=== PATIENT | male | born 1950 | race Two or more races ===

== ENCOUNTER 2018-01-03 09:54 | Emergency (ER) | payer MEDICAID ==
[~2018-01-03] VITALS: Ht 160 cm; Wt 83.0 kg
[2018-01-03] MEDS ORDERED: dexamethasone 0.5 mg/5ml unit-dose oral solution PO STA (12:24)
[2018-01-03] MEDS ORDERED: dexamethasone sod phosphate 10mg/ml inj PO STA (12:27)
[2018-01-03] MEDS ORDERED: HYDR-565 PO (12:52)
[2018-01-03 13:05] VITALS: BP 146/87
== END 2018-01-03 13:06 | disposition home or self-care (01) ==
LOC: ER 09:55
DX: M25.512 Pain in left shoulder (principal); E11.9 Type 2 diabetes mellitus without complications; M19.90 Unspecified osteoarthritis, unspecified site; G89.29 Other chronic pain; Z90.49 Acquired absence of other specified parts of digestive tract
CPT/HCPCS: 99284; J1100; J8540

== ENCOUNTER 2018-04-02 07:26 | Emergency (ER) | payer MEDICAID ==
[~2018-04-02] VITALS: Ht 172.7 cm; Wt 82.0 kg
[2018-04-02] MEDS ORDERED: ipratropium/albuterol 3ml nebule NEB ONE (07:55)
[2018-04-02] MEDS ORDERED: acetaminophen 325mg tablet PO ONE (07:55)
[2018-04-02] MEDS ORDERED: methylPREDNISolone sod succ 125mg/2ml vial IV ONE (07:55)
[2018-04-02] MEDS ORDERED: methylPREDNISolone sod succ 125mg/2ml vial ONE (08:16)
[2018-04-02 08:27] LABS: BASOPHILS % (AUTO) 0.2 % (0-1); EOSINOPHILS # (AUTO) 0.3 X10'3 (0-0.9); EOSINOPHILS % (AUTO) 3.7 % (0-6); HEMATOCRIT 39.6 % (42.0-52.0); HEMOGLOBIN 14.1 g/dl (14.0-17.9); INR 1.1 INR; LYMPHOCYTES # (AUTO) 1.2 X10'3 (1.1-4.8); LYMPHOCYTES % (AUTO) 17.5 % (21-51); MEAN CORPUSCULAR HGB CONC 35.6 % (33.0-36.5); MEAN CORPUSCULAR VOLUME 84.2 FL (78-98); MEAN PLATELET VOLUME 9.8 FL (7.4-10.4); MONOCYTES # (AUTO) 0.4 X10'3 (0-0.9); MONOCYTES % (AUTO) 5.7 % (2-12); NEUTROPHILS % (AUTO) 72.9 % (42-75); PARTIAL THROMBOPLASTIN TIME 31 SECONDS (22-32); PLATELET COUNT 174 X10'3 (140-440); PROTHROMBIN TIME 11.4 SECONDS (9.0-12.0); RED BLOOD COUNT 4.71 X10'6 (4.70-6.10); RED CELL DISTRIBUTION WIDTH 12.4 % (11.5-14.5); WHITE BLOOD COUNT 6.9 X10'3 (4.5-11.0)
[2018-04-02 08:30] LABS: ALANINE AMINOTRANSFERASE 27 U/L (12-78); ALBUMIN 3.6 G/DL (3.4-5.0); ALBUMIN/GLOBULIN RATIO 1.1 (1.1-1.5); ALKALINE PHOSPHATASE 88 IU/L (46-116); ANION GAP 13 (8-16); ASPARTATE AMINO TRANSFERASE 22 U/L (10-37); BILIRUBIN,TOTAL 0.7 MG/DL (0.1-1.0); BLOOD UREA NITROGEN 11 MG/DL (7-18); BUN/CREATININE RATIO 10.5 (5.4-32.0); CALCIUM 8.7 MG/DL (8.5-10.1); CHLORIDE 101 MMOL/L (99-107); CREATININE 1.05 MG/DL (0.60-1.10); GLUCOSE 257 MG/DL (70-104); POTASSIUM 3.7 MMOL/L (3.5-5.1); SODIUM 137 MMOL/L (135-145); TOTAL PROTEIN 6.9 G/DL (6.4-8.2); eGFR 70 ML/MIN
[2018-04-02] MEDS ORDERED: levoFLOXACIN 500mg tablet PO ONE (09:30)
[2018-04-02] MEDS ORDERED: LEVO750T21 PO (09:55)
[2018-04-02 10:06] VITALS: BP 125/77
== END 2018-04-02 10:08 | disposition home or self-care (01) ==
LOC: ER 07:27
DX: J18.9 Pneumonia, unspecified organism (principal); M25.562 Pain in left knee; G89.29 Other chronic pain; J45.909 Unspecified asthma, uncomplicated; E11.9 Type 2 diabetes mellitus without complications; M19.90 Unspecified osteoarthritis, unspecified site; Z90.49 Acquired absence of other specified parts of digestive tract
CPT/HCPCS: 36415; 71045; 80053; 83880; 84484; 85025; 85610; 85730; 93005; 94640; 94760; 96374; 96376; 99285; J2930

== ENCOUNTER 2018-04-11 12:41 | Emergency (ER) | payer MEDICAID ==
[~2018-04-11] VITALS: Ht 165.1 cm; Wt 82.8 kg
[2018-04-11] MEDS ORDERED: dexamethasone 4mg tablet PO ONE (13:10)
[2018-04-11] MEDS ORDERED: ipratropium/albuterol 3ml nebule NEB ONE (13:10)
[2018-04-11 14:08] LABS: BASOPHILS % (AUTO) 0.2 % (0-1); EOSINOPHILS # (AUTO) 0.1 X10'3 (0-0.9); EOSINOPHILS % (AUTO) 1.6 % (0-6); HEMATOCRIT 42.2 % (42.0-52.0); HEMOGLOBIN 14.8 g/dl (14.0-17.9); LYMPHOCYTES % (AUTO) 12.1 % (21-51); MEAN CORPUSCULAR HEMOGLOBIN 29.6 PG (27.0-31.0); MEAN CORPUSCULAR VOLUME 84.7 FL (78-98); MEAN PLATELET VOLUME 9.6 FL (7.4-10.4); MONOCYTES # (AUTO) 0.5 X10'3 (0-0.9); MONOCYTES % (AUTO) 6.3 % (2-12); NEUTROPHILS # (AUTO) 6.4 X10'3 (1.8-7.7); NEUTROPHILS % (AUTO) 79.8 % (42-75); PLATELET COUNT 169 X10'3 (140-440); RED BLOOD COUNT 4.98 X10'6 (4.70-6.10); WHITE BLOOD COUNT 8.1 X10'3 (4.5-11.0)
[2018-04-11 15:35] LABS: ALANINE AMINOTRANSFERASE 50 U/L (12-78); ALBUMIN 3.9 G/DL (3.4-5.0); ALBUMIN/GLOBULIN RATIO 1.1 (1.1-1.5); ALKALINE PHOSPHATASE 89 IU/L (46-116); ANION GAP 10 (8-16); ASPARTATE AMINO TRANSFERASE 36 U/L (10-37); BILIRUBIN,TOTAL 0.6 MG/DL (0.1-1.0); BLOOD UREA NITROGEN 10 MG/DL (7-18); BUN/CREATININE RATIO 10.6 (5.4-32.0); CHLORIDE 103 MMOL/L (99-107); CREATININE 0.94 MG/DL (0.60-1.10); GLUCOSE 175 MG/DL (70-104); POTASSIUM 3.8 MMOL/L (3.5-5.1); SODIUM 138 MMOL/L (135-145); TOTAL CARBON DIOXIDE 24.6 MMOL/L (24-32); TOTAL PROTEIN 7.3 G/DL (6.4-8.2); eGFR 80 ML/MIN
[2018-04-11 15:58] VITALS: BP 135/55
[2018-04-11] MEDS ORDERED: ALBU8HFA PO (16:03)
== END 2018-04-11 16:48 | disposition home or self-care (01) ==
LOC: ER 12:42
DX: R06.02 Shortness of breath (principal); R06.00 Dyspnea, unspecified; J45.909 Unspecified asthma, uncomplicated; E11.9 Type 2 diabetes mellitus without complications; M19.90 Unspecified osteoarthritis, unspecified site; G89.29 Other chronic pain; Z90.49 Acquired absence of other specified parts of digestive tract; Z79.899 Other long term (current) drug therapy
CPT/HCPCS: 36415; 71046; 80053; 83605; 83880; 84145; 84484; 85025; 87040; 94640; 94760; 99285; J8540

== ENCOUNTER 2018-06-09 10:38 | Inpatient (IN) | payer MEDICAID ==
[2018-06-03 12:19] LABS: BASOPHILS % (AUTO) 0.7 % (0-1); EOSINOPHILS # (AUTO) 0.2 X10'3 (0-0.9); EOSINOPHILS % (AUTO) 2.7 % (0-6); LYMPHOCYTES # (AUTO) 1.1 X10'3 (1.1-4.8); LYMPHOCYTES % (AUTO) 17.4 % (21-51); MEAN CORPUSCULAR HEMOGLOBIN 30.4 PG (27.0-31.0); MEAN CORPUSCULAR HGB CONC 35.1 % (33.0-36.5); MEAN CORPUSCULAR VOLUME 86.8 FL (78-98); MEAN PLATELET VOLUME 9.6 FL (7.4-10.4); MONOCYTES # (AUTO) 0.4 X10'3 (0-0.9); MONOCYTES % (AUTO) 6.4 % (2-12); NEUTROPHILS # (AUTO) 4.5 X10'3 (1.8-7.7); NEUTROPHILS % (AUTO) 72.8 % (42-75); PRE OP HEMATOCRIT 42.2 % (42.0-52.0); PRE OP HEMOGLOBIN 14.8 g/dL (14.0-17.9); PRE OP PLATELET COUNT 165 X10'3 (140-440); RED BLOOD COUNT 4.86 X10'6 (4.70-6.10); RED CELL DISTRIBUTION WIDTH 13.5 % (11.5-14.5)
[2018-06-03 12:29] LABS: PRE OP INR 1.1 INR
[2018-06-03 12:33] LABS: ALBUMIN 3.6 G/DL (3.4-5.0); ALKALINE PHOSPHATASE 118 IU/L (46-116); BLOOD UREA NITROGEN 8 MG/DL (7-18); CALCIUM 9.1 MG/DL (8.5-10.1); CHLORIDE 100 MMOL/L (99-107); CREATININE 0.89 MG/DL (0.60-1.10); HEMOGLOBIN A1C 7.4 % (4.5-6.2); PRE OP ALT 24 U/L (30-65); PRE OP ANION GAP 9 (8-16); PRE OP AST 23 U/L (10-37); PRE OP BILIRUB, TOTAL 0.6 MG/DL (0.0-1.0); PRE OP GLUCOSE 191 MG/DL (70-104); PRE OP POTASSIUM 3.9 MMOL/L (3.4-5.1); PRE OP SODIUM 134 MMOL/L (135-145); TOTAL CARBON DIOXIDE 25.2 MMOL/L (24-32); TOTAL PROTEIN 7.1 G/DL (6.4-8.2); eGFR 85 ML/MIN
[2018-06-09] VITALS (14 sets, daily range): BP systolic 103–146; BP diastolic 62–74
[~2018-06-09] VITALS: Ht 172.7 cm; Wt 90.9 kg
[~2018-06-09 10:38] MED LIST: ALBU18HF2 INH; Cefazolin 2GM/50ML dext iso,osmotic IVPB IV ONE; GLIP10TA11 PO; IBUP-1984 PO; METF500T PO; OXYC-658 PO; VANCOMYCIN INJ 1000 MG in NORMAL SALINE 250ml IV.SOLN IV ONE; albuterol 2.5 MG/3 ML nebule NEB ONE; famotidine 20mg tablet PO ONE; ringers solution, lacted 1,000 ML IV SCH; tranexamic acid inj. 900 MG in normal saline 100ml IV soln 91 ML IV ONE
[2018-06-09] MEDS ORDERED: LIDOcaine 1% (10mg/ml) 2ml vial ONE (11:22)
[2018-06-09] MEDS ORDERED: ROPIVAcaine 0.5% (5mg/ml) 30ml vial ONE (14:33)
[2018-06-09] MEDS ORDERED: ketorolac trometh. 30mg/ml inj. ONE (14:33)
[2018-06-09] MEDS ORDERED: meperidine/PF 25mg/ml syringe ONE (16:05)
[2018-06-09] MEDS ORDERED: vancomycin 1,000mg inj ONE (16:33)
[2018-06-09] MEDS ORDERED: tetracaine 1% (10mg/ml) pres. free inj. ONE (16:53)
[2018-06-09] MEDS ORDERED: morphine /PF 1mg/ml 10ml inj. ONE (16:54)
[2018-06-09] MEDS ORDERED: fentaNYL/PF 50MCG/1 ML 2ML syringe ONE (16:54)
[2018-06-09] MEDS ORDERED: MIDAZolam 5mg/5ml vial ONE (16:55)
[2018-06-09] MEDS ORDERED: propofol inj 20 ML IV ONE ×3 (17:16→19:28)
[2018-06-09] MEDS ORDERED: LIDOcaine 1%/PF 5ML 10 MG/ML VIAL ONE (17:16)
[2018-06-09] MEDS ORDERED: naloxone 2mg/2ml inj 1.8 MG in normal saline 500ml IV soln 500 ML IV PRN (17:52)
[2018-06-09] MEDS ORDERED: ringers solution, lacted 1,000 ML IV SCH (17:52)
[2018-06-09] MEDS ORDERED: meperidine/PF 25mg/ml syringe IV PRN ×3 (17:55)
[2018-06-09] MEDS ORDERED: proCHLORperazine 10 MG/2 ml inj IV PRN (17:55)
[2018-06-09] MEDS ORDERED: diphenhydrAMINE 50 mg/ml inj IV PRN (17:55)
[2018-06-09] MEDS ORDERED: morphine 4 MG/ML inj SYRINge IV PRN ×2 (17:55)
[2018-06-09] MEDS ORDERED: ondansetron/PF 4mg/2ml inj IV PRN ×3 (17:55→19:40)
[2018-06-09] MEDS ORDERED: diphenhydrAMINE 50 mg/ml inj ONE (18:09)
[2018-06-09] MEDS ORDERED: oxyCODONE IR 5mg (immed. release) tablet PO PRN ×2 (19:40)
[2018-06-09] MEDS ORDERED: magnesium hydroxide 30ml (MOM) UD suspension PO PRN (19:40)
[2018-06-09] MEDS ORDERED: ibuprofen tablet 400 MG TABLET PO PRN (19:40)
[2018-06-09] MEDS ORDERED: bisacodyl 10mg suppository rectal RC PRN (19:40)
[2018-06-09] MEDS ORDERED: HYDROmorphone 1 mg/ml syringe IV PRN (19:40)
[2018-06-09] MEDS ORDERED: diphenhydrAMINE 25mg capsule PO PRN ×2 (19:40)
[2018-06-09] MEDS ORDERED: acetaminophen 325mg tablet PO PRN (19:40)
[2018-06-09] MEDS ORDERED: non-formulary drug (Albuterol Sulfate (Ventolin Hfa) 2 PUFFS) INH SCH (19:40)
[2018-06-09] MEDS ORDERED: dexamethasone sod phosphate 4mg/ml inj. ONE (19:47)
[2018-06-09] MEDS ORDERED: cloNIDine hcl/PF 100mcg/ml inj ONE (19:47)
[2018-06-09] MEDS ORDERED: albuterol 2.5 MG/3 ML nebule NEB PRN (19:55)
[2018-06-09] MEDS ORDERED: non-formulary drug (Glipizide 1 TAB) PO SCH (20:00)
[2018-06-09] MEDS ORDERED: vancomycin/NS 1 GM ADD-VANTAGE 250 ML IV SCH (20:00)
[2018-06-09] MEDS: potassium cl 20mEq in 1/2 NS 1,000 ML IV SCH (21:26)
[2018-06-09] MEDS: gabapentin 300mg capsule PO SCH (21:26)
[2018-06-09] MEDS: glipizide 5mg tablet PO SCH (21:27)
[2018-06-09] MEDS: acetaminophen 325mg tablet PO SCH (21:27)
[2018-06-09] MEDS: ketorolac tromethamine 15mg/ml inj. IV SCH (21:28)
[2018-06-09] MEDS: sennosides 8.6mg tablet PO SCH (21:29)
[2018-06-09] MEDS ORDERED: tranexamic acid inj. 900 MG in normal saline 100ml IV soln 100 ML IV ONE (22:40)
[2018-06-10] MEDS: ceFAZolin 1GM/D5W- ADD-VANTAGE 50 ML IV SCH ×2 (00:28→07:44)
[2018-06-10 00:30] VITALS: BP 146/76
[2018-06-10] MEDS: ketorolac tromethamine 15mg/ml inj. IV SCH ×3 (01:38→14:01)
[2018-06-10] MEDS: acetaminophen 325mg tablet PO SCH ×4 (01:39→21:12)
[2018-06-10 02:26] VITALS: BP 121/61
[2018-06-10] MEDS: potassium cl 20mEq in 1/2 NS 1,000 ML IV SCH ×3 (02:56→19:39)
[2018-06-10 05:00] VITALS: BP 115/63
[2018-06-10] MEDS: oxyCODONE IR 5mg (immed. release) tablet PO PRN ×3 (05:59→22:13)
[2018-06-10 06:15] LABS: BASOPHILS % (AUTO) 0.1 % (0-1); EOSINOPHILS # (AUTO) 0.1 X10'3 (0-0.9); EOSINOPHILS % (AUTO) 1.2 % (0-6); HEMOGLOBIN 13.1 g/dl (14.0-17.9); LYMPHOCYTES # (AUTO) 0.8 X10'3 (1.1-4.8); MEAN CORPUSCULAR HEMOGLOBIN 30.2 PG (27.0-31.0); MEAN CORPUSCULAR HGB CONC 34.5 % (33.0-36.5); MEAN CORPUSCULAR VOLUME 87.4 FL (78-98); MEAN PLATELET VOLUME 10.6 FL (7.4-10.4); MONOCYTES # (AUTO) 0.6 X10'3 (0-0.9); MONOCYTES % (AUTO) 6.3 % (2-12); NEUTROPHILS # (AUTO) 8.2 X10'3 (1.8-7.7); NEUTROPHILS % (AUTO) 84.4 % (42-75); PLATELET COUNT 162 X10'3 (140-440); RED BLOOD COUNT 4.35 X10'6 (4.70-6.10); RED CELL DISTRIBUTION WIDTH 13.4 % (11.5-14.5); WHITE BLOOD COUNT 9.7 X10'3 (4.5-11.0)
[2018-06-10 06:16] LABS: ANION GAP 9 (8-16); CHLORIDE 105 MMOL/L (99-107); POTASSIUM 4.1 MMOL/L (3.5-5.1); SODIUM 138 MMOL/L (135-145); TOTAL CARBON DIOXIDE 23.6 MMOL/L (24-32)
[2018-06-10] MEDS: metFORMIN 500mg tablet PO SCH ×2 (07:44→17:38)
[2018-06-10] MEDS: gabapentin 300mg capsule PO SCH ×3 (07:45→21:13)
[2018-06-10] MEDS: glipizide 5mg tablet PO SCH ×2 (07:45→21:13)
[2018-06-10] MEDS: aspirin 325mg tablet PO SCH (09:33)
[2018-06-10 10:00] VITALS: BP 111/54
[2018-06-10 14:00] VITALS: BP 125/65
[2018-06-10] MEDS: sennosides 8.6mg tablet PO SCH (21:12)
[2018-06-10] MEDS: celeCOXIB 100mg capsule PO SCH (21:13)
[2018-06-10] MEDS: HYDROmorphone 1 mg/ml syringe IV PRN (21:13)
[2018-06-10 22:18] VITALS: BP 136/59
[2018-06-11] MEDS: acetaminophen 325mg tablet PO SCH ×3 (01:55→13:04)
[2018-06-11] MEDS: oxyCODONE IR 5mg (immed. release) tablet PO PRN ×2 (01:56→06:23)
[2018-06-11] MEDS: HYDROmorphone 1 mg/ml syringe IV PRN (03:01)
[2018-06-11] MEDS: potassium cl 20mEq in 1/2 NS 1,000 ML IV SCH (03:04)
[2018-06-11 05:00] VITALS: BP 123/53
[2018-06-11 06:10] LABS: BASOPHILS % (AUTO) 0.4 % (0-1); EOSINOPHILS # (AUTO) 0.3 X10'3 (0-0.9); EOSINOPHILS % (AUTO) 4.3 % (0-6); HEMATOCRIT 33.4 % (42.0-52.0); HEMOGLOBIN 11.4 g/dl (14.0-17.9); LYMPHOCYTES # (AUTO) 1.1 X10'3 (1.1-4.8); LYMPHOCYTES % (AUTO) 16.3 % (21-51); MEAN CORPUSCULAR HEMOGLOBIN 30.1 PG (27.0-31.0); MEAN CORPUSCULAR HGB CONC 34.2 % (33.0-36.5); MEAN PLATELET VOLUME 10.2 FL (7.4-10.4); MONOCYTES # (AUTO) 0.7 X10'3 (0-0.9); MONOCYTES % (AUTO) 10.7 % (2-12); NEUTROPHILS # (AUTO) 4.6 X10'3 (1.8-7.7); NEUTROPHILS % (AUTO) 68.3 % (42-75); PLATELET COUNT 134 X10'3 (140-440); RED CELL DISTRIBUTION WIDTH 13.1 % (11.5-14.5); WHITE BLOOD COUNT 6.7 X10'3 (4.5-11.0)
[2018-06-11] MEDS: metFORMIN 500mg tablet PO SCH ×2 (06:57→17:02)
[2018-06-11] MEDS ORDERED: oxyCODONE/APAP 10/325mg tablet PO PRN (07:40)
[2018-06-11] MEDS ORDERED: HYDROmorphone 1 mg/ml syringe IV PRN (08:00)
[2018-06-11] MEDS: celeCOXIB 100mg capsule PO SCH ×2 (08:07→20:15)
[2018-06-11] MEDS: aspirin 325mg tablet PO SCH (08:08)
[2018-06-11] MEDS: glipizide 5mg tablet PO SCH ×2 (08:08→20:15)
[2018-06-11] MEDS: gabapentin 300mg capsule PO SCH ×3 (08:08→20:15)
[2018-06-11] MEDS: oxyCODONE/APAP 10/325mg tablet PO PRN ×4 (09:37→20:51)
[2018-06-11 10:00] VITALS: BP 134/68
[2018-06-11 18:00] VITALS: BP 138/68
[2018-06-11] MEDS ORDERED: acetaminophen 325mg tablet PO PRN (19:40)
[2018-06-11] MEDS: sennosides 8.6mg tablet PO SCH (20:15)
[2018-06-11 22:00] VITALS: BP 165/77
[2018-06-12] MEDS: oxyCODONE/APAP 10/325mg tablet PO PRN ×2 (01:17→05:33)
[2018-06-12 05:00] VITALS: BP 150/66
[2018-06-12 06:54] LABS: BASOPHILS % (AUTO) 0.4 % (0-1); EOSINOPHILS # (AUTO) 0.3 X10'3 (0-0.9); EOSINOPHILS % (AUTO) 4.4 % (0-6); HEMATOCRIT 33.2 % (42.0-52.0); HEMOGLOBIN 11.5 g/dl (14.0-17.9); LYMPHOCYTES # (AUTO) 0.8 X10'3 (1.1-4.8); LYMPHOCYTES % (AUTO) 12.5 % (21-51); MEAN CORPUSCULAR HEMOGLOBIN 30.2 PG (27.0-31.0); MEAN CORPUSCULAR HGB CONC 34.7 % (33.0-36.5); MEAN CORPUSCULAR VOLUME 87.2 FL (78-98); MONOCYTES # (AUTO) 0.8 X10'3 (0-0.9); MONOCYTES % (AUTO) 11.4 % (2-12); NEUTROPHILS # (AUTO) 4.8 X10'3 (1.8-7.7); NEUTROPHILS % (AUTO) 71.3 % (42-75); PLATELET COUNT 146 X10'3 (140-440); RED BLOOD COUNT 3.81 X10'6 (4.70-6.10); RED CELL DISTRIBUTION WIDTH 13.3 % (11.5-14.5); WHITE BLOOD COUNT 6.8 X10'3 (4.5-11.0)
[2018-06-12] MEDS: HYDROmorphone 1 mg/ml syringe IV PRN (07:32)
[2018-06-12] MEDS: gabapentin 300mg capsule PO SCH (07:32)
[2018-06-12] MEDS: celeCOXIB 100mg capsule PO SCH (07:32)
[2018-06-12] MEDS: glipizide 5mg tablet PO SCH (08:33)
[2018-06-12] MEDS: metFORMIN 500mg tablet PO SCH (08:33)
[2018-06-12] MEDS: aspirin 325mg tablet PO SCH (08:35)
[2018-06-12] MEDS ORDERED: PER10325T PO (08:35)
[2018-06-12] MEDS ORDERED: ASPI-1 PO (08:35)
== END 2018-06-12 10:00 | disposition home health service (06) | DRG 302 ==
LOC: PAS IN 10:38 → EDSTATUS 14:30 → ORTHO 4S 20:43
PROVIDERS: ADMIT Orthopaedic Surgery; ATTEND Orthopaedic Surgery
PROC: 8E0YXBZ Computer Assisted Procedure of Lower Extremity (ICD-10-PCS; 2018-06-09)
PROC: 8E0Y0CZ Robotic Assisted Procedure of Lower Extremity, Open Approach (ICD-10-PCS; 2018-06-09)
PROC: 0SRC0J9 Replacement of Right Knee Joint with Synthetic Substitute, Cemented, Open Approach (ICD-10-PCS; principal; 2018-06-09 16:51)
DX: M17.0 Bilateral primary osteoarthritis of knee (principal); D62 Acute posthemorrhagic anemia; E11.9 Type 2 diabetes mellitus without complications; J45.909 Unspecified asthma, uncomplicated
CPT/HCPCS: 36415; 80051; 80053; 82948; 83036; 85025; 85610; 85730; 87070; 97110; 97116; 97161; 97162; 97530; A6455; A7000; C1713; C1758; C1776; J0690; J0735; J1100; J1170; J1200; J1885; J2001; J2175; J2250; J2274; J2704; J2795; J3010; J3370; J3490; J7030; J7120; Q0163

== ENCOUNTER 2018-06-26 21:29 | Emergency (ER) | payer MEDICAID ==
[~2018-06-26] VITALS: Ht 165.1 cm; Wt 88.6 kg
[~2018-06-26 21:29] MED LIST changes: +ASPI-1 PO; -Cefazolin 2GM/50ML dext iso,osmotic IVPB IV ONE; +PER10325T PO; -VANCOMYCIN INJ 1000 MG in NORMAL SALINE 250ml IV.SOLN IV ONE; -albuterol 2.5 MG/3 ML nebule NEB ONE; -famotidine 20mg tablet PO ONE; -ringers solution, lacted 1,000 ML IV SCH; -tranexamic acid inj. 900 MG in normal saline 100ml IV soln 91 ML IV ONE
[2018-06-26] MEDS ORDERED: morphine 4 MG/ML inj SYRINge IV ONE (22:35)
[2018-06-26] MEDS ORDERED: ondansetron/PF 4mg/2ml inj IV ONE (22:35)
[2018-06-27 01:50] LABS: BASOPHILS % (AUTO) 0.3 % (0-1); EOSINOPHILS # (AUTO) 0.2 X10'3 (0-0.9); HEMATOCRIT 32.6 % (42.0-52.0); HEMOGLOBIN 11.2 g/dl (14.0-17.9); LYMPHOCYTES # (AUTO) 0.8 X10'3 (1.1-4.8); LYMPHOCYTES % (AUTO) 8.2 % (21-51); MEAN CORPUSCULAR HEMOGLOBIN 29.4 PG (27.0-31.0); MEAN CORPUSCULAR HGB CONC 34.3 % (33.0-36.5); MEAN CORPUSCULAR VOLUME 85.6 FL (78-98); MEAN PLATELET VOLUME 7.8 FL (7.4-10.4); MONOCYTES # (AUTO) 0.6 X10'3 (0-0.9); MONOCYTES % (AUTO) 5.9 % (2-12); NEUTROPHILS # (AUTO) 7.8 X10'3 (1.8-7.7); NEUTROPHILS % (AUTO) 83.6 % (42-75); PLATELET COUNT 374 X10'3 (140-440); RED BLOOD COUNT 3.81 X10'6 (4.70-6.10); RED CELL DISTRIBUTION WIDTH 12.6 % (11.5-14.5); WHITE BLOOD COUNT 9.3 X10'3 (4.5-11.0)
[2018-06-27 01:54] VITALS: BP 152/84
[2018-06-27 02:02] LABS: INR 1.2 INR; PARTIAL THROMBOPLASTIN TIME 33 SECONDS (22-32); PROTHROMBIN TIME 12.4 SECONDS (9.0-12.0)
[2018-06-27 02:05] LABS: ALANINE AMINOTRANSFERASE 20 U/L (12-78); ALBUMIN 3.1 G/DL (3.4-5.0); ALBUMIN/GLOBULIN RATIO 0.8 (1.1-1.5); ALKALINE PHOSPHATASE 109 IU/L (46-116); ANION GAP 10 (8-16); ASPARTATE AMINO TRANSFERASE 23 U/L (10-37); BILIRUBIN,TOTAL 0.7 MG/DL (0.1-1.0); BLOOD UREA NITROGEN 11 MG/DL (7-18); CALCIUM 8.7 MG/DL (8.5-10.1); CHLORIDE 99 MMOL/L (99-107); CREATININE 0.92 MG/DL (0.60-1.10); GLUCOSE 143 MG/DL (70-104); MAGNESIUM 1.5 MG/DL (1.5-2.4); POTASSIUM 3.4 MMOL/L (3.5-5.1); SODIUM 134 MMOL/L (135-145); TOTAL CARBON DIOXIDE 25.3 MMOL/L (24-32); eGFR 82 ML/MIN
[2018-06-27] MEDS ORDERED: morphine 4 MG/ML inj SYRINge IV ONE (02:20)
[2018-06-27] MEDS ORDERED: HYDR-565 PO (04:39)
== END 2018-06-27 05:00 | disposition home or self-care (01) ==
LOC: ER 21:29
DX: T84.83XA Hemorrhage due to internal orthopedic prosthetic devices, implants and grafts, initial encounter (principal); S80.11XA Contusion of right lower leg, initial encounter; E11.9 Type 2 diabetes mellitus without complications; J45.909 Unspecified asthma, uncomplicated; M19.90 Unspecified osteoarthritis, unspecified site; Z96.651 Presence of right artificial knee joint; Z90.49 Acquired absence of other specified parts of digestive tract; Y83.8 Other surgical procedures as the cause of abnormal reaction of the patient, or of later complication, without mention of misadventure at the time of the procedure; Y93.89 Activity, other specified; Y92.89 Other specified places as the place of occurrence of the external cause; Y99.8 Other external cause status
CPT/HCPCS: 36415; 73560; 80053; 83605; 83735; 84145; 85025; 85610; 85730; 87040; 93971; 96374; 96375; 96376; 99285; J2270; J2405

== ENCOUNTER 2019-01-20 13:16 | Outpatient (CLI) | payer MEDICAID | END 2019-01-20 23:59 | disposition home or self-care (01) | LOC: PRE-OP 13:16 → EDSTATUS 02-02 14:30 | PROVIDERS: ATTEND Orthopaedic Surgery | DX: M25.561 Pain in right knee (principal); T84.53XD Infection and inflammatory reaction due to internal right knee prosthesis, subsequent encounter; Z53.09 Procedure and treatment not carried out because of other contraindication ==

== ENCOUNTER 2019-06-08 09:22 | Inpatient (IN) | payer MEDICAID ==
[2019-05-31 12:56] LABS: BASOPHILS % (AUTO) 0.7 % (0-1); EOSINOPHILS # (AUTO) 0.3 X10'3 (0-0.9); EOSINOPHILS % (AUTO) 5.1 % (0-6); LYMPHOCYTES # (AUTO) 1.9 X10'3 (1.1-4.8); LYMPHOCYTES % (AUTO) 29.8 % (21-51); MEAN CORPUSCULAR HEMOGLOBIN 29.5 PG (27.0-31.0); MEAN CORPUSCULAR VOLUME 84.2 FL (78-98); MEAN PLATELET VOLUME 10.1 FL (7.4-10.4); MONOCYTES # (AUTO) 0.5 X10'3 (0-0.9); NEUTROPHILS # (AUTO) 3.7 X10'3 (1.8-7.7); NEUTROPHILS % (AUTO) 56.4 % (42-75); PRE OP HEMATOCRIT 42.6 % (42.0-52.0); PRE OP HEMOGLOBIN 14.9 g/dL (14.0-17.9); PRE OP PLATELET COUNT 164 X10'3 (140-440); RED BLOOD COUNT 5.05 X10'6 (4.70-6.10); RED CELL DISTRIBUTION WIDTH 13.1 % (11.5-14.5)
[2019-05-31 12:59] LABS: PRE OP INR 1.1 INR; PRE OP PROTIME 11.5 SECONDS (9.0-12.0)
[2019-05-31 13:11] LABS: ALBUMIN 3.9 G/DL (3.4-5.0); ALBUMIN/GLOBULIN RATIO 1.1 (1.1-1.5); ALKALINE PHOSPHATASE 104 IU/L (46-116); BLOOD UREA NITROGEN 28 MG/DL (7-18); BUN/CREATININE RATIO 29.2 (5.4-32.0); CALCIUM 8.8 MG/DL (8.5-10.1); CHLORIDE 100 MMOL/L (99-107); CREATININE 0.96 MG/DL (0.60-1.10); PRE OP ALT 38 U/L (30-65); PRE OP ANION GAP 11 (8-16); PRE OP AST 19 U/L (10-37); PRE OP BILIRUB, TOTAL 0.6 MG/DL (0.0-1.0); PRE OP POTASSIUM 4.2 MMOL/L (3.4-5.1); PRE OP SODIUM 137 MMOL/L (135-145); TOTAL CARBON DIOXIDE 26.1 MMOL/L (24-32); TOTAL PROTEIN 7.5 G/DL (6.4-8.2); eGFR 78 ML/MIN
[2019-05-31 13:12] LABS: HEMOGLOBIN A1C 7.4 % (4.5-6.2)
[2019-05-31 13:17] LABS: PRE OP GLUCOSE 263 MG/DL (70-104)
[~2019-06-08] VITALS: Ht 172.7 cm; Wt 90.7 kg
[2019-06-08] VITALS (15 sets, daily range): BP systolic 94–128; BP diastolic 52–75
[~2019-06-08 09:22] MED LIST changes: -ASPI-1 PO; +CETI-194 PO; +CITA-311 PO; +CLIN-96 PO; +GERITOL PO; -GLIP10TA11 PO; +HYDR-3972 PO; -IBUP-1984 PO; +INSU100I31 SQ; +MELA1TAB17 PO; -METF500T PO; -OXYC-658 PO; -PER10325T PO; +meperidine/PF 25mg/ml syringe IV PRN; +morphine 4 MG/ML inj SYRINge IV PRN; +ondansetron/PF 4mg/2ml inj IV PRN; +proCHLORperazine 10 MG/2 ml inj IV PRN; +ringers solution, lacted 1,000 ML IV SCH
[2019-06-08] MEDS ORDERED: HYDROmorphone 1 mg/ml syringe IV PRN (09:55)
[2019-06-08] MEDS ORDERED: diphenhydrAMINE 25mg capsule PO PRN ×2 (09:55)
[2019-06-08] MEDS ORDERED: albuterol 2.5 MG/3 ML nebule NEB PRN (09:55)
[2019-06-08] MEDS ORDERED: magnesium hydroxide 30ml (MOM) UD suspension PO PRN (09:55)
[2019-06-08] MEDS ORDERED: ondansetron/PF 4mg/2ml inj IV PRN (09:55)
[2019-06-08] MEDS ORDERED: HYDROmorphone inj. 0.5 MG/0.5 ML DISP.SYRIN IV PRN (09:55)
[2019-06-08] MEDS ORDERED: bisacodyl 10mg suppository rectal RC PRN (09:55)
[2019-06-08] MEDS ORDERED: acetaminophen 325mg tablet PO PRN (09:55)
[2019-06-08] MEDS ORDERED: tranexamic acid inj. 900 MG in normal saline 100ml IV soln 100 ML IV ONE ×6 (10:00→19:22)
[2019-06-08] MEDS ORDERED: famotidine 20mg tablet PO ONE (10:00)
[2019-06-08] MEDS ORDERED: VANCOMYCIN INJ 1000 MG in NORMAL SALINE 250ml IV.SOLN IV ONE (10:00)
[2019-06-08] MEDS ORDERED: cefazolin/dext.iso 2gm/100 ML IV ONE (10:00)
[2019-06-08] MEDS ORDERED: ringers solution, lacted 1,000 ML IV SCH (10:00)
[2019-06-08] MEDS ORDERED: fentaNYL/PF 50MCG/1 ML 2ML syringe ONE (12:30)
[2019-06-08] MEDS ORDERED: MIDAZolam 5mg/5ml vial ONE (12:30)
[2019-06-08] MEDS ORDERED: ePHEDrine 50MG/ML INJ. ONE (12:55)
[2019-06-08] MEDS ORDERED: ROPIVAcaine 0.5% (5mg/ml) 30ml vial IJ ONE (14:14)
[2019-06-08] MEDS ORDERED: ketorolac trometh. 30mg/ml inj. IM ONE (14:15)
[2019-06-08 15:09] LABS: APPEARANCE,SYNOVIAL FLUID CLOUDY; COLOR,SYNOVIAL FLUID RED
[2019-06-08 15:10] LABS: LYMPHOCYTES,SYNOVIAL FLUID 43 % (0-75); MONOCYTES,SYNOVIAL FLUID 32 % (0-0); NEUTROPHILS,SYNOVIAL FLUID 25 % (0-25); SYN RBC 39250 /CU MM (0); SYN WBC 488 /CU MM (0-200); SYNOVIAL LINING CELLS FEW
[2019-06-08] MEDS ORDERED: ROPIVAcaine 0.5% (5mg/ml) 30ml vial ONE (15:41)
--- NOTE | 2019-06-08 16:42 | NUR ---
Received from OR via , accompanied by Anesthesiologist DR SON and report given by Anesthesiolgist. AWAKENS TO VOICE. VITALS STABLE. DRESSING DI. LINDA PAIN. SENSATION TO THE FEET. GPLEY WITH CLEAR DARK URINE.
[2019-06-08] MEDS ORDERED: ROPIVAcaine 0.2%/PF PAIN PUMP 550 ML IJ SCH (16:46)
--- NOTE | 2019-06-08 17:25 | NUR ---
received report from Eliud in recovery
--- NOTE | 2019-06-08 17:32 | NUR ---
Report called to receiving nurse. Transferred via bed Belongings . Special Issues communicated to receiving nurse. awake and oriented. vitals stable. dressing di. dina pain. to ortho rm [id number] at this time.
[2019-06-08] MEDS: clindamycin 150mg capsule PO SCH ×2 (17:49→19:58)
[2019-06-08] MEDS: acetaminophen 325mg tablet PO SCH ×2 (17:50→20:01)
[2019-06-08] MEDS: ceFAZolin 1GM/D5W- ADD-VANTAGE 50 ML IV SCH (18:02)
--- NOTE | 2019-06-08 18:15 | NUR ---
Received report from Vincent MONTANA. Assumed care of patient.
--- NOTE | 2019-06-08 18:31 | NUR ---
Problems reprioritized. Patient report given, questions answered & plan of care reviewed with Jessica RN.
[2019-06-08] MEDS ORDERED: dextrose 50%-water 50ml dispensing syringe IV PRN ×2 (19:25)
[2019-06-08] MEDS ORDERED: glucagon, human recombinant 1mg kit SUBCUT PRN (19:25)
[2019-06-08] MEDS ORDERED: MESSAGE TO PHARMACY PO ONE (19:25)
[2019-06-08] MEDS ORDERED: dextrose ORAL solution 15 GM/59 ML bottle PO PRN ×2 (19:25)
[2019-06-08] MEDS ORDERED: vancomycin/NS 1 GM ADD-VANTAGE 250 ML IV SCH (20:00)
--- NOTE | 2019-06-08 20:00 | NUR ---
Patient's blood sugar was 209 at 1800. patient had met protocol earlier today. Insulin was not available in patient's omnicell bin or EMAR. Verified with Dr. Mccray to get protocol ordered on patients chart. Pharmacy could not get insulin on to the floor until around 2029. retook patient's blood sugar at 2100 and covered the patient for the nighttime lantus. Discussed this decision with Sheila MONTANA.
[2019-06-08] MEDS: potassium cl 20mEq in 1/2 NS 1,000 ML IV SCH (20:13)
[2019-06-08] MEDS ORDERED: PYRIDOXINE HCL PO SCH (21:00)
[2019-06-08] MEDS: sennosides 8.6mg tablet PO SCH (21:00)
[2019-06-08] MEDS ORDERED: MELATONIN PO SCH (21:00)
[2019-06-08] MEDS: insulin glargine (Lantus) pen - multi-dose SQ SCH (21:05)
[2019-06-09] MEDS: oxyCODONE IR 5mg (immed. release) tablet PO PRN ×4 (00:02→14:12)
[2019-06-09] MEDS: ceFAZolin 1GM/D5W- ADD-VANTAGE 50 ML IV SCH ×2 (01:27→08:16)
[2019-06-09 02:00] VITALS: BP 114/56
[2019-06-09] MEDS: clindamycin 150mg capsule PO SCH ×4 (02:57→21:12)
[2019-06-09] MEDS: acetaminophen 325mg tablet PO SCH ×4 (02:57→21:13)
[2019-06-09] MEDS: potassium cl 20mEq in 1/2 NS 1,000 ML IV SCH ×4 (05:29→14:12)
--- NOTE | 2019-06-09 06:00 | NUR ---
Gave report to Leonardo MONTANA.
[2019-06-09 06:37] LABS: BASOPHILS % (AUTO) 0.1 % (0-1); EOSINOPHILS % (AUTO) 0.1 % (0-6); HEMATOCRIT 30.7 % (42.0-52.0); HEMOGLOBIN 10.8 g/dl (14.0-17.9); LYMPHOCYTES # (AUTO) 0.8 X10'3 (1.1-4.8); LYMPHOCYTES % (AUTO) 9.9 % (21-51); MEAN CORPUSCULAR HEMOGLOBIN 30.2 PG (27.0-31.0); MEAN CORPUSCULAR HGB CONC 35.4 g/dL (33.0-36.5); MEAN CORPUSCULAR VOLUME 85.3 FL (78-98); MEAN PLATELET VOLUME 9.8 FL (7.4-10.4); MONOCYTES # (AUTO) 0.9 X10'3 (0-0.9); MONOCYTES % (AUTO) 10.5 % (2-12); NEUTROPHILS # (AUTO) 6.6 X10'3 (1.8-7.7); NEUTROPHILS % (AUTO) 79.4 % (42-75); PLATELET COUNT 141 X10'3 (140-440); RED CELL DISTRIBUTION WIDTH 12.9 % (11.5-14.5); WHITE BLOOD COUNT 8.4 X10'3 (4.5-11.0)
[2019-06-09 06:38] LABS: ANION GAP 8 (8-16); CHLORIDE 104 MMOL/L (99-107); POTASSIUM 4.4 MMOL/L (3.5-5.1); SODIUM 135 MMOL/L (135-145); TOTAL CARBON DIOXIDE 22.6 MMOL/L (24-32)
--- NOTE | 2019-06-09 06:54 | NUR ---
Patient in room ORTHO 4022. I have received report from Jessica MONTANA and had the opportunity to ask questions and assume patient care.
[2019-06-09 06:56] VITALS: BP 120/55
[2019-06-09] MEDS ORDERED: GERITOL PO SCH (08:00)
[2019-06-09] MEDS: CITALOpram 10mg tablet PO SCH (08:15)
[2019-06-09] MEDS: aspirin 325mg tablet PO SCH (08:16)
[2019-06-09] MEDS: cetirizine 10mg tablet PO SCH (08:16)
[2019-06-09] MEDS: insulin Lispro (HumaLOG) vial - multi-dose SQ SCH ×3 (08:33→19:01)
[2019-06-09 10:48] VITALS: BP 110/59
--- NOTE | 2019-06-09 12:03 | NUR ---
DM Consult: A1C 7.4. Pt/family only speak/read Haitian. NESTOR provided Haitian written DM ed to pt at bedside which pt read and was able to communicate he will read. PO 100% regular diet meeting healing needs. Given hx T2DM and GLU 210 s/p R knee surgery NESTOR d/w RN to advance to carb controlled diet per MD approval. Will continue to monitor. Addendum: 06/09/19 at [address] Amended: Links added.
[2019-06-09 14:20] VITALS: BP 126/55
[2019-06-09 18:00] VITALS: BP 128/60
--- NOTE | 2019-06-09 18:00 | NUR ---
I AGREE WITH MY PRECEPTEE WESTON MONTANA CHARTING.
--- NOTE | 2019-06-09 18:22 | NUR ---
Problems reprioritized. Patient report given, questions answered & plan of care reviewed with Erum MONTANA.
[2019-06-09] MEDS: sennosides 8.6mg tablet PO SCH (21:00)
[2019-06-09] MEDS: celeCOXIB 100mg capsule PO SCH (21:12)
[2019-06-09] MEDS: insulin glargine (Lantus) pen - multi-dose SQ SCH (21:54)
[2019-06-09 22:00] VITALS: BP 149/63
[2019-06-10] MEDS: potassium cl 20mEq in 1/2 NS 1,000 ML IV SCH (01:51)
[2019-06-10] MEDS: clindamycin 150mg capsule PO SCH ×2 (02:28→08:59)
[2019-06-10] MEDS: acetaminophen 325mg tablet PO SCH ×2 (02:29→09:04)
[2019-06-10 04:53] LABS: BASOPHILS % (AUTO) 0.3 % (0-1); EOSINOPHILS # (AUTO) 0.2 X10'3 (0-0.9); EOSINOPHILS % (AUTO) 3.1 % (0-6); HEMATOCRIT 26.5 % (42.0-52.0); HEMOGLOBIN 9.3 g/dl (14.0-17.9); LYMPHOCYTES # (AUTO) 1.4 X10'3 (1.1-4.8); LYMPHOCYTES % (AUTO) 25.7 % (21-51); MEAN CORPUSCULAR HEMOGLOBIN 30.1 PG (27.0-31.0); MEAN CORPUSCULAR HGB CONC 35.2 g/dL (33.0-36.5); MEAN CORPUSCULAR VOLUME 85.5 FL (78-98); MEAN PLATELET VOLUME 9.9 FL (7.4-10.4); MONOCYTES # (AUTO) 0.7 X10'3 (0-0.9); MONOCYTES % (AUTO) 12.6 % (2-12); NEUTROPHILS # (AUTO) 3.2 X10'3 (1.8-7.7); NEUTROPHILS % (AUTO) 58.3 % (42-75); PLATELET COUNT 113 X10'3 (140-440); RED CELL DISTRIBUTION WIDTH 13.4 % (11.5-14.5); WHITE BLOOD COUNT 5.6 X10'3 (4.5-11.0)
[2019-06-10] MEDS: oxyCODONE IR 5mg (immed. release) tablet PO PRN ×2 (05:23→09:13)
[2019-06-10 06:00] VITALS: BP 136/50
[2019-06-10] MEDS ORDERED: HYDR-4353 PO (07:33)
[2019-06-10] MEDS ORDERED: ASPI-1 PO (07:39)
[2019-06-10] MEDS: celeCOXIB 100mg capsule PO SCH (08:59)
[2019-06-10] MEDS: CITALOpram 10mg tablet PO SCH (08:59)
[2019-06-10] MEDS: aspirin 325mg tablet PO SCH (09:04)
[2019-06-10] MEDS: cetirizine 10mg tablet PO SCH (09:04)
[2019-06-10] MEDS: insulin Lispro (HumaLOG) vial - multi-dose SQ SCH (09:06)
[2019-06-10] MEDS ORDERED: acetaminophen 325mg tablet PO PRN (09:55)
[2019-06-10 10:00] VITALS: BP 122/65
== END 2019-06-10 11:30 | disposition home health service (06) | DRG 302 ==
LOC: PAS IN 09:22 → EDSTATUS 15:00 → ORTHO 4S 17:28
PROVIDERS: ADMIT Orthopaedic Surgery; ATTEND Orthopaedic Surgery
PROC: 0SRC0J9 Replacement of Right Knee Joint with Synthetic Substitute, Cemented, Open Approach (ICD-10-PCS; 2019-06-08)
PROC: 0SPC0JZ Removal of Synthetic Substitute from Right Knee Joint, Open Approach (ICD-10-PCS; 2019-06-08)
PROC: 3E0T3BZ Introduction of Anesthetic Agent into Peripheral Nerves and Plexi, Percutaneous Approach (ICD-10-PCS; principal; 2019-06-08 12:25)
DX: T84.53XA Infection and inflammatory reaction due to internal right knee prosthesis, initial encounter (principal); D62 Acute posthemorrhagic anemia; J44.9 Chronic obstructive pulmonary disease, unspecified; E11.9 Type 2 diabetes mellitus without complications; F32.9 Major depressive disorder, single episode, unspecified; E66.9 Obesity, unspecified; Z68.30 Body mass index [BMI] 30.0-30.9, adult; T84.022A Instability of internal right knee prosthesis, initial encounter; Y83.1 Surgical operation with implant of artificial internal device as the cause of abnormal reaction of the patient, or of later complication, without mention of misadventure at the time of the procedure; Z79.899 Other long term (current) drug therapy; Z87.891 Personal history of nicotine dependence; Y92.89 Other specified places as the place of occurrence of the external cause
CPT/HCPCS: 36415; 80051; 80053; 82948; 83036; 85025; 85610; 85730; 87070; 87075; 87081; 87102; 87176; 89051; 93005; 94760; 97110; 97116; 97161; 97530; A4215; A6454; A7000; A9272; C1713; C1758; C1776; G0378; J0690; J1170; J1815; J1885; J2250; J2795; J3010; J3370; J3480; J7120

== ENCOUNTER 2021-07-16 13:04 | Emergency (ER) | payer MEDICAID ==
[~2021-07-16] VITALS: Ht 172.7 cm; Wt 90.0 kg
[~2021-07-16 13:04] MED LIST changes: +ASPI-1 PO; -CLIN-96 PO; +CLIN-97 PO; -HYDR-3972 PO; -meperidine/PF 25mg/ml syringe IV PRN; -morphine 4 MG/ML inj SYRINge IV PRN; -ondansetron/PF 4mg/2ml inj IV PRN; -proCHLORperazine 10 MG/2 ml inj IV PRN; -ringers solution, lacted 1,000 ML IV SCH
[2021-07-16 14:25] LABS: BASOPHILS % (AUTO) 0.3 % (0-1); EOSINOPHILS % (AUTO) 0.6 % (0-6); HEMATOCRIT 39.1 % (42.0-52.0); HEMOGLOBIN 13.6 g/dl (14.0-17.9); LYMPHOCYTES # (AUTO) 0.5 X10'3 (1.1-4.8); LYMPHOCYTES % (AUTO) 6.9 % (21-51); MEAN CORPUSCULAR HEMOGLOBIN 28.8 PG (27.0-31.0); MEAN CORPUSCULAR HGB CONC 34.8 g/dL (33.0-36.5); MEAN CORPUSCULAR VOLUME 82.6 FL (78-98); MEAN PLATELET VOLUME 9.8 FL (7.4-10.4); MONOCYTES # (AUTO) 0.6 X10'3 (0-0.9); MONOCYTES % (AUTO) 8.8 % (2-12); NEUTROPHILS # (AUTO) 5.5 X10'3 (1.8-7.7); NEUTROPHILS % (AUTO) 83.4 % (42-75); PLATELET COUNT 217 X10'3 (140-440); RED BLOOD COUNT 4.73 X10'6 (4.70-6.10); RED CELL DISTRIBUTION WIDTH 13.3 % (11.5-14.5); WHITE BLOOD COUNT 6.6 X10'3 (4.5-11.0)
[2021-07-16 14:45] LABS: ALANINE AMINOTRANSFERASE 23 U/L (12-78); ALBUMIN 3.2 G/DL (3.4-5.0); ALBUMIN/GLOBULIN RATIO 0.7 (1.1-1.5); ALKALINE PHOSPHATASE 75 IU/L (46-116); ANION GAP 11 (8-16); ASPARTATE AMINO TRANSFERASE 17 U/L (10-37); BLOOD UREA NITROGEN 13 MG/DL (7-18); CALCIUM 8.5 MG/DL (8.5-10.1); CHLORIDE 97 MMOL/L (99-107); CREATININE 0.93 MG/DL (0.60-1.10); GLUCOSE 342 MG/DL (70-104); LACTATE DEHYDROGENASE 813 U/L (85-227); POTASSIUM 3.8 MMOL/L (3.5-5.1); SODIUM 131 MMOL/L (135-145); TOTAL CARBON DIOXIDE 23.2 MMOL/L (24-32); TOTAL PROTEIN 7.5 G/DL (6.4-8.2); eGFR 80 ML/MIN
[2021-07-16 14:46] LABS: C-REACTIVE PROTEIN 26.76 MG/DL (0.0-0.5)
[2021-07-16] MEDS ORDERED: acetaminophen 325mg tablet PO ONE (15:25)
[2021-07-16] MEDS ORDERED: BENZ-16 PO (16:01)
[2021-07-16] MEDS ORDERED: ACET-1025 PO (16:01)
[2021-07-16] MEDS ORDERED: ALBU8HFA PO (16:01)
--- NOTE | 2021-07-16 16:22 | NUR ---
pt seen and assessed by provider
[2021-07-16 16:47] VITALS: BP 131/76
== END 2021-07-16 16:22 | disposition home or self-care (01) ==
LOC: ER 13:04
DX: U07.1 COVID-19 (principal); J12.82 Pneumonia due to coronavirus disease 2019; E11.65 Type 2 diabetes mellitus with hyperglycemia; J45.909 Unspecified asthma, uncomplicated; G89.29 Other chronic pain; Z79.899 Other long term (current) drug therapy
CPT/HCPCS: 36415; 71045; 80053; 83615; 85025; 86140; 87635; 99284; C9803